=== PATIENT | male | born 1955 | race Caucasian/White ===

== ENCOUNTER 2022-07-08 07:45 | Emergency (ER) | payer MEDICARE, SELFPAY ==
[2022-07-08 07:55] VITALS: BP 172/104; PULSE 77; RESP 14; TEMP 36.9; O2SAT 94; BMI 28.4
[2022-07-08 08:05] VITALS: BP 172/102; PULSE 84; RESP 14; O2SAT 93
[2022-07-08] MEDS: HYDROcodone-acetaminophen 5-325 mg Tablet 1 TAB PO (08:15)
[2022-07-08] MEDS: amoxicillin-clav 875-125 mg Tablet 1 TAB PO (08:17)
--- NOTE | 2022-07-08 09:29 | W.ED.DENTAL ---
Documented by User: Renuka Cross [employer]ER-C 07/08/22 09:35 HPI - Dental/Oral General: Chief complaint: Dental/Oral Stated complaint: toothache Time Seen by Provider: 07/08/22 07:50 History of Present Illness: Patient is in today for dental pain. He reports that for 3 days he has had significant pain in his right lower tooth. He reports that he does have a appointment next week with the dentist to have this pulled. He denies fever or chills. He reports that he has been taken NSAID at home with no relief Associated symptoms: Denies fever(s) Review of Systems Const: Denies: fever(s), chills or body aches ENMT: Reports: dental pain Card: Denies: chest pain or palpitations Resp: Denies: dyspnea, productive cough or non-productive cough GI: Denies: abdominal pain, nausea or vomiting : Denies: flank pain, difficulty urinating or dysuria Physical Exam Const: COMMON NORMALS: no acute distress, patient oriented x3 and alert HENMT: TEETH & GINGIVA: Yes caries, Yes gingiva abnormal edematous and diffusely erythematous and Yes poor dentition Neck/C-Spine: COMMON NORMALS: no JVD Resp: COMMON NORMALS: normal respiratory effort, No use of accessory muscles and clear to auscultation bilaterally AUSCULTATION: clear to auscultation bilaterally Cardio: COMMON NORMALS: no JVD, regular rate, regular rhythm, S1 normal heart sound present and S2 normal heart sound present RATE: regular rate RHYTHM: regular rhythm HEART SOUNDS: S1 normal heart sound present and S2 normal heart sound present Neuro: COMMON NORMALS: patient oriented x3, moves all extremities and no focal motor deficits SENSORIUM/ORIENTATION: Yes alert Course Vital Signs: Vital signs: Vital Signs Temperature 98.4 F 07/08/22 07:55 Pulse Rate 84 07/08/22 08:05 Respiratory Rate 14 07/08/22 08:05 Blood Pressure 172/102 07/08/22 08:05 Pulse Oximetry 93 07/08/22 08:05 Oxygen Delivery Me thod 07/08/22 08:05 MDM - Dental/Oral Medical Decision Making Considered dental abscess, dental caries, dental pain Patient has numerous broken teeth and dental caries. The tooth in question has a partial On it right lower jaw. The surrounding gingiva is erythematous and edematous. No definitive drainable abscess is visible. Treat patient for early forming dental abscess. Discussed possible benefits and risk of medication provided today. Follow-up with dentist next week at already scheduled appointment. Return to ER for new or worsening symptoms Discharge Plan Discharge Patient Disposition: Home Clinical Impression: Dental caries, Dental abscess Condition: Stable Prescriptions: New amoxicillin-pot clavulanate 875-125 mg tablet 1 tab PO BID 10 Days Qty: 20 0RF Discharge Orders: Discharge ED (Routine); Ordered 07/08/22 Ordered By: Renuka Cross Discharge Diet: Usual diet Discharge Activity: Resume usual activity Patient Instructions: Dental Abscess (ED) Activity Restrictions/Additional Instructions: Take antibiotic as directed. Gargle with warm salt water. Follow-up with dental at your scheduled appointment next week. Return to ER as needed for new or worsening symptoms. Coding Level of Care Code ED Engineering Documentation Specialist for Chg Fwd Exam Detailed Documented by User: John Cazares DO 07/08/22 16:14 HPI - Dental/Oral General: Chief complaint: Dental/Oral Stated complaint: toothache Time Seen by Provider: 07/08/22 07:50 Course Vital Signs: Vital signs: Vital Signs Temperature 98.4 F 07/08/22 07:55 Pulse Rate 84 07/08/22 08:05 Respiratory Rate 14 07/08/22 08:05 Blood Pressure 172/102 07/08/22 08:05 Pulse Oximetry 93 07/08/22 08:05 Oxygen Delivery Me thod 07/08/22 08:05 MDM - Dental/Oral Medical Decision Making Considered dental abscess, dental caries, dental pain Patient has numerous broken teeth and dental caries. The tooth in question has a partial On it right lower jaw. The surrounding gingiva is erythematous and edematous. No definitive drainable abscess is visible. Treat patient for early forming dental abscess. Discussed possible benefits and risk of medication provided today. Follow-up with dentist next week at already scheduled appointment. Return to ER for new or worsening symptoms Chart reviewed and patient discussed with midlevel. Agree with assessment and plan. Discharge Plan Discharge Patient Disposition: Home Clinical Impression: Dental caries, Dental abscess Condition: Stable Prescriptions: New amoxicillin-pot clavulanate 875-125 mg tablet 1 tab PO BID 10 Days Qty: 20 0RF Discharge Orders: Discharge ED (Routine); Ordered 07/08/22 Ordered By: Renuka Cross Discharge Diet: Usual diet Discharge Activity: Resume usual activity Patient Instructions: Dental Abscess (ED) Activity Restrictions/Additional Instructions: Take antibiotic as directed. Gargle with warm salt water. Follow-up with dental at your scheduled appointment next week. Return to ER as needed for new or worsening symptoms. Coding Level of Care Code ED Engineering Documentation Specialist for Randy Fwd Exam Detailed
== END 2022-07-08 08:32 | disposition home or self-care (01) ==
PROVIDERS: Emergency Provider Nurse Practitioner Family
DX: K02.9 Dental caries, unspecified (principal); K04.7 Periapical abscess without sinus
CPT/HCPCS: 99283